=== PATIENT | male | born 1980 | race Hispanic/Latino ===

== ENCOUNTER 2018-05-02 17:07 | Emergency (ER) | payer OTHER ==
[2018-05-02 17:40] VITALS: O2SAT 99
[2018-05-02] MEDS ORDERED: Dexamethasone 4 mg/1 ml IM STA (17:53)
--- NOTE | 2018-05-02 17:59 | ED PDOC ---
HPI: CCC, URI, Sore Throat Time Seen by Provider: 05/02/18 17:40 Chief Complaint (Nursing): ENT Problem Chief Complaint (Provider): Sore throat and fever History Per: Patient History/Exam Limitations: no limitations Onset/Duration Of Symptoms: Days (x4) Current Symptoms Are (Timing): Still Present Location Of Pain: Throat Associated Symptoms: Fever, Sore Throat Ear Symptoms: Bilateral: None Additional Complaint(s): Salty Snow is a 37 year old male, with no significant past medical history , who presents to the emergency department for evaluation of sore throat and fever x 4 days. Patient was seen by MD yesterday who started him on zithromax and he took first dose yesterday and the 2nd dose today. Patient states his temperature this afternoon was 101.8, he took Tylenol at 16:00 with no relief of symptoms. Patient reports difficulty swallowing after having lunch this afternoon. Patient states throat culture was obtained yesterday in PMD office. PMD: DAYLIN Condon Past Medical History Reviewed: Historical Data, Nursing Documentation, Vital Signs Vital Signs: Last Vital Signs Temp 100.6 F H 05/02/18 17:38 Pulse 87 05/02/18 17:38 Resp 18 05/02/18 17:38 BP 116/77 05/02/18 17:38 Pulse Ox 99 05/02/18 19:25 - Medical History PMH: No Chronic Diseases - Surgical History Other surgeries: Left shoulder shoulder, Right wrist surgery - Family History Family History: States: CAD - Living Arrangements Living Arrangements: With Family - Social History Current smoker - smoking cessation education provided: No Alcohol: Occasional Drugs: Denies - Home Medications Home Medications: Ambulatory Orders Medication Instructions Recorded Dicyclomine [Bentyl] 20 mg PO Q12 PRN #20 tab 07/03/14 Esomeprazole Magnesium [Nexium] 40 mg PO DAILY #28 ecc 07/03/14 Ibuprofen [Motrin] 600 mg PO Q6 PRN #20 tab 05/02/18 Prednisone 50 mg PO DAILY #5 tablet 05/02/18 - Allergies Allergies/Adverse Reactions: Allergies Allergy/AdvReac Type Severity Reaction Status Date / Time No Known Allergies Allergy Verified 05/02/18 17:38 Review of Systems ROS Statement: Except As Marked, All Systems Reviewed And Found Negative Constitutional: Positive for: Fever ENT: Positive for: Throat Pain, Throat Swelling Cardiovascular: Negative for: Chest Pain Respiratory: Negative for: Cough, Shortness of Breath Neurological: Negative for: Headache, Dizziness Physical Exam - Reviewed Nursing Documentation Reviewed: Yes Vital Signs Reviewed: Yes - Physical Exam Appears: Positive for: Well, Non-toxic, No Acute Distress Head Exam: Positive for: ATRAUMATIC, NORMAL INSPECTION, NORMOCEPHALIC Skin: Positive for: Normal Color. Negative for: Rash Eye Exam: Positive for: Normal appearance, EOMI, PERRL ENT: Positive for: Tonsillar Swelling (bilateral tonsillar swelling with exudates), Other (uvula is mildy edematous) Cardiovascular/Chest: Positive for: Regular Rate, Rhythm Respiratory: Positive for: Normal Breath Sounds. Negative for: Respiratory Distress Extremity: Positive for: Normal ROM (upper and lower extremities). Negative for : Deformity, Swelling Lymphatic: Positive for: Adenopathy (bilateral anterior cervical lymphadenopathy ) Neurologic/Psych: Positive for: Alert, Oriented - ECG O2 Sat by Pulse Oximetry: 99 (RA) Pulse Ox Interpretation: Normal Medical Decision Making Medical Decision Making: Time: 17:40 Initial Impression: Tonsillitis Initial Plan: --Decadron Inj 10 mg IM --Motrin tab 600 mg PO --Reevaluation Patient states he feels better after meds given. Patient was advised to continue with Zithromax and was given prescriptions for ibuprofen and prednisone. Advised fluids, rest and PMD follow-up in one to 2 days. Patient is aware he can return to emergency room at any time if acutely worse. Scribe Attestation: Documented by Momo Echevarria, acting as a scribe for Ondina Randall PA-C Provider Scribe Attestation: All medical record entries made by the Scribe were at my direction and personally dictated by me. I have reviewed the chart and agree that the record accurately reflects my personal performance of the history, physical exam, medical decision making, and the department course for this patient. I have also personally directed, reviewed, and agree with the discharge instructions and disposition. Disposition - Clinical Impression Clinical Impression: Tonsillitis - Patient ED Disposition Is Patient to be Admitted: No Counseled Patient/Family Regarding: Diagnosis, Need For Followup, Rx Given - Disposition Referrals: [facility] [Outside] Disposition: Routine/Home Disposition Time: 19:23 Condition: STABLE Additional Instructions: Cotinue with antibiotics. Take rx meds as directed. Drink plenty of fluids. Follow up with primary care doctor in 1-2 days. Prescriptions: Ibuprofen [Motrin] 600 mg PO Q6 PRN #20 tab PRN Reason: Pain, Moderate (4-7) Prednisone 50 mg PO DAILY #5 tablet Instructions: Sore Throat, Adult (DC) Forms: [employer] [facility] ([place]vian)
[2018-05-02 19:46] VITALS: BP 128/74; PULSE 88; RESP 16; TEMP 99.4
== END 2018-05-02 19:46 | disposition home or self-care (01) ==
LOC: H.ER 17:07
DX: J03.90 Acute tonsillitis, unspecified (principal)
CPT/HCPCS: 96372; 99282; J1100